=== PATIENT | female | born 1985 | race Caucasian/White ===

== ENCOUNTER 2016-09-04 01:10 | Inpatient (IN) | payer OTHER ==
[~2016-09-04] VITALS: Ht 200.7 cm; Wt 102.5 kg
[2016-09-04] MEDS ORDERED: Sodium Chloride LOK Flush 10 mL Syringe IVFLUSH PRN (21:15)
[2016-09-04] MEDS: Misoprostol 25 mCg/0.25 Tablet VAGINAL SCH (22:01)
[2016-09-04 22:06] LABS: Mean Corpuscular Hemoglobin 26.3 pg (27.0-35.0); Mean Corpuscular Volume 80.2 fL (81-100)
[2016-09-04] MEDS ORDERED: ESOM20CA28 PO (22:52)
[2016-09-04] MEDS ORDERED: PREN1TAB87 PO (22:52)
[2016-09-05] MEDS: Misoprostol 25 mCg/0.25 Tablet VAGINAL SCH ×2 (01:05→04:06)
[2016-09-05] MEDS: Lactated Ringer's 1,000 ML IV SCH (02:00)
[2016-09-05] MEDS ORDERED: Lactated Ringer's 500 ML IV ONE (12:52)
[2016-09-05] MEDS ORDERED: Lactated Ringer's 1,000 ML IV SCH ×2 (12:52→18:18)
[2016-09-05] MEDS ORDERED: Ondansetron 2 mg/mL 2 mL Inj IVPUSH PRN (12:55)
[2016-09-05] MEDS ORDERED: fentaNYL 2 mCg/mL-Bupiv 0.125% 100 ML EPIDURAL SCH (12:55)
[2016-09-05] MEDS ORDERED: EPHEDrine Sulfate 50 mg/mL Inj IVPUSH PRN (12:55)
[2016-09-05] MEDS ORDERED: Atropine 1 mg/10 mL (Code) Syringe IVPUSH PRN (12:55)
[2016-09-05] MEDS ORDERED: fentaNYL-PF 50 mCg/mL 2 mL Inj ONE (14:17)
[2016-09-05] MEDS ORDERED: fentaNYL-PF 50 mCg/mL 2 mL Inj IVPUSH ONE (14:25)
--- NOTE | 2016-09-05 16:50 | PCM.HPANE ---
Patient Data Surgeon Admitting Provider:Mac Cosme MD Attending Provider:Mac Cosme MD Primary Care Physician:Mac Cosme MD Other Provider:Kristyn Harding Anesthesia Reason for Visit Induction INDUCTION Ht/WT & BMI Body Mass Index Allergies Coded Allergies: No Known Allergies (Unverified , 09/04/16) MRSA MRSA: No Medications Hypertension Medication: No Home Meds Incl Beta Qiana: No Reported Medications Vit W-Ca,Fe,FA(<1 mg) ( Vitamins)1 Each Tablet1 Each PO 09/04/16 Esomeprazole Magnesium (Nexium)20 Mg Capsule.dr20 Mg PO DAILY Ref 0 09/04/16 History History of ENT Problems?: No Other HEENT Pertinent History: s/p tonsillectomy Hx of Heart Problems?: No Hx of Respiratory Problem?: No Hx Neurologic Problems?: No Hx of Problems?: No Female Hx: Positive for:: Currently Hx Musculoskeletal Problems?: No Stop/Bang KATIE Risk Assessment: Low Risk, <3 Yes Risk Assessment Category Category 1A: Patient has history of documented sleep apnea, and HAS NOT received any narcotic, sedative or anesthesia administration during this stay. Category 1B: Patient has history of documented sleep apnea, and HAS received any narcotic , sedative or anesthesia administration during this stay Category 2: Patient has SUSPECTED Obstructive Sleep Apnea, and HAS received any narcotic , sedative or anesthesia administration during this stay. Category 3: Patient has SUSPECTED Obstructive Sleep Apnea and HAS NOT received narcotic, sedative or anesthesia administration during this stay. Category 4: Outpatient in Procedural Areas with known sleep apnea or who screen positive for High Risk via the STOP/BANG questionnaire. Exam Exam General Appearance: Alert, Oriented X3, Cooperative, No Acute Distress HEENT/AIRWAY: MP 2 Lungs: Clear to Auscultation, Normal Air Movement Heart: Exam Unremarkable, Regular Rate/Rhythm, No Murmurs/Rubs/Gallops Meds/Labs/Diagnostics Admission Meds Current Medications Misoprostol 25 mcg 25 mcg Q3H VAGINAL Last administered on 09/05/16 04:06; Start 09/04/16 at 21:10 Lactated Ringer's (Lr) 1,000 ml @ 125 mls/hr Q8H IV Last administered on 02:00; Start 09/05/16 at 01:30 Dinoprostone (Cervidil Vaginal Insert) 10 mg ONCE ONCE VAGINAL Last administered on 09/05/16t 09:32; Start 09/05/16 at 09:10; Stop 09/05/16 at 09:11; Status DC Labs Test 09/04/16 21:00 09/04/16 21:55 09/04/16 22:01 Urine Random Creatinine 114mg/dL (16-392) Urine Random Total Protein 14mg/dL (0-15) Urine Protein/Creatinine Ratio 0.12 White Blood Count 11.3th/mm3 (3.8-10.1) Red Blood Count 4.64mil/mm3 (3.90-5.20) Hemoglobin 12.2g/dL (12.0-15.6) Hematocrit 37.2% (35.0-46.0) Mean Corpuscular Volume 80.2fL (81-100) Mean Corpuscular Hemoglobin 26.3pg (27.0-35.0) Mean Corpuscular Hemoglobin Concent 32.8% (32.0-37.0) Red Cell Distribution Width 14.3% (12.3-15.4) Platelet Count 304bil/L (150-400) Hematology Comments Blood Urea Nitrogen 8mg/dL (6-20) Creatinine 0.42mg/dL (0.57-1.00) Uric Acid 5.0mg/dL (2.6-7.2) Aspartate Amino Transf (AST/SGOT) 20U/L (0-50) Alanine Aminotransferase (ALT/SGPT) 9U/L (0-32) Hold Urine Received (Received) Plan Impression Patient chart reviewed, patient interviewed and anesthestic plan with risks, benefits, and alternatives discussed, and informed consent obtained. ASA Physical Status: ASA2 Mod Systemic Disease Anesthetic Plan: Epidural Bene/Risks/Altern/Consents: Yes HP Complete Prior to Induction: Yes Shaheed Felder MD Sep 05, 2016 12:55
[2016-09-05] MEDS ORDERED: Oxytocin 30 Units/500 mL LR Premix IV ONE (17:44)
[2016-09-05] MEDS ORDERED: Benzocaine (Dermoplast) 20% 60 Gm Spray TOPICAL PRN (18:20)
[2016-09-05] MEDS ORDERED: Methylergonovine 0.2 mg/mL Inj IM PRN (18:20)
[2016-09-05] MEDS ORDERED: LANOlin HPA 7 Gm Ointment TOPICAL PRN (18:20)
[2016-09-05] MEDS ORDERED: Oxytocin 10 Unit/mL Inj IM PRN (18:20)
[2016-09-05] MEDS ORDERED: Carboprost 250 mCg/mL Inj IM PRN (18:20)
[2016-09-05] MEDS ORDERED: Hemorrhage Kit, Post Partum XX ONE (18:20)
[2016-09-05] MEDS ORDERED: Influenza (Adult) Vaccine 0.5 mL Syringe IM ONE (18:20)
[2016-09-05] MEDS ORDERED: Measles-Mumps-Rubella Vaccine 0.5 mL Inj SUBQ ONE ×2 (18:20→18:35)
[2016-09-05] MEDS ORDERED: Witch Hazel-Glycerin Pads TOPICAL PRN (18:20)
[2016-09-05] MEDS ORDERED: HYDROcodone-APAP 5-325 mg Tablet PO PRN (18:20)
[2016-09-05] MEDS ORDERED: TdaP Vaccine 0.5 mL Inj IM ONE (18:20)
[2016-09-05] MEDS ORDERED: Oxytocin 30 Units/500 mL LR 30 UNITS in IV Premix 1 EACH IV PRN (18:20)
--- NOTE | 2016-09-05 18:50 | PROG NOTE ---
[address] [address] PROGRESS NOTE PATIENT: MARY JEFFRIES : 1985 MR#: [id number] ADMIT: 09/04/2016 JOB ID: [id number] DATE: 09/05/2016 TIME: 1803 hours. [facility] NOTE: This patient was admitted to [facility] last evening at 37-1/7 weeks of gestation with gestational hypertension for cervical ripening/labor induction. She ultimately received Cytotec 25 mcg x3 doses overnight and cervix remained however closed and thick and high and posterior this morning i.e. on September 05, 2016. Cervidil was subsequently provided and cervix then ultimately changed to 1-1/2 cm and then 3 cm of dilatation and epidural and provided for pain management as the patient a very difficult time with mild to moderate contractions as palpated during latent phase of labor. Note that spontaneous rupture of membranes occurred at around 0930 hours this morning, which notably helped improve the intensity of contractions thereafter. Note that the blood pressure has been good at times, although also with some blood pressure elevations mildly, although not at a point that we need to give any type of antihypertensive medication. Note that preeclampsia labs were normal and again gestational hypertension has been suspected, not preeclampsia. Following epidural activation, the patient received some good pain relief yet has felt a lot of pressure and head has been descending as we have found cervix to be dilated to 9 cm and then to 10 cm. The patient is now pushing and learning to do this effectively. heart tracing has been acceptable. Note recent scalp stim and subsequent good variability spontaneously. Note that the nurse just reported to me a temperature of 37.9, a brand new finding to have any type of fever. heart tracing has not been tachycardic, nor with any ominous pattern. There has been no purulent drainage and no uterine tenderness between contractions. It is anticipated that labor and delivery will occur soon and this is our goal, to report then to optical goods worker for any further workup or management in light of the fever. Note that rupture of membranes has only been for about 8-1/2 hours and the patient has negative GBS status. PLAN: Initiating pushing. Anticipating soon vaginal delivery.
--- NOTE | 2016-09-05 18:53 | HP ---
[address] [address] HISTORY AND PHYSICAL PATIENT: MARY JEFFRIES : 1985 MR#: [id number] ADMIT: 09/04/2016 JOB ID: [id number] [facility] [place] NOTE: DATE: 09/04/2016 The patient is a 30-year-old, G2, P0, AB1 woman followed prenatally at [facility] per Dr. Cosme, see record for details. Note third trimester onset of mild hypertension, initially with 90 diastolics yet then increasing to 100 diastolic, even in the 95-100 range intermittently while doing bed rest at home. There has been no specific evidence for preeclampsia, yet concern is overall with degree of hypertension that this is related to gestational hypertension. We were able to gain a few weeks up to 37 weeks, but then felt that labor induction and delivery would be appropriate. She was thus admitted on September 04, 2016 for cervical ripening preceding labor induction. In summary, then, the patient was admitted to [facility] on September 04, 2016 at 37 1/7 weeks gestation for cervical ripening/labor induction in the setting of significant gestational hypertension. PHYSICAL EXAMINATION: On admission, height 67 inches, weight 224 pounds at last check in the office. Blood pressure variable, significantly elevated on admission, then coming down; see nurse readings. Neck: No thyromegaly lungs are auscultation and percussion. Heart: Regular in rate and rhythm. Abdomen: Fundal height 37 cm at last check. Positive heartbeat. Vertex presentation. Pelvic examination: Cervix long, thick and closed and posterior. IMPRESSION: 1. A 37 1/7 weeks . 2. Gestational hypertension, no antihypertensive medication, no evidence for preeclampsia. 3. Increased weight gain in , 53 pounds. 4. Increased weight. 5. Rh-negative status, having received RhoGAM injection in , also MICRhoGAM injection last spring following a miscarriage. The MICRhoGAM was felt to have accounted for positive antibody screen noted at 10 weeks along during current , and then antibody screen was appropriately subsequently negative late in the 2nd trimester on recheck. 6. Negative group B strep test. 7. Rubella immune. 8. Shingles occurrence earlier in , note history of known chickenpox. 9. Prior tonsillectomy. 10. No known drug allergies. 11. Family history of twins (uncles), and breast cancer (paternal grandmother). PLAN: This patient was admitted to [facility] in the evening of September 04, 2016 for cervical ripening in the setting of gestational hypertension at 37 1/7 weeks gestation.
[2016-09-06 06:30] LABS: Mean Corpuscular Hemoglobin 26.2 pg (27.0-35.0); Mean Corpuscular Volume 79.8 fL (81-100)
--- NOTE | 2016-09-06 06:51 | PCM.ANEP2 ---
Post Anesthesia Evaluation ASA/CMS Post Anesthesia VS in Patient's Normal Range?: Yes Resp Stable; Airway Patent?: Yes CV Function & Hydration Stable: Yes Mental Status Recovered?: Yes Pain control Satisfactory?: Yes N/V Control Satisfactory?: Yes Shaheed Felder MD Sep 06, 2016 06:51
[2016-09-06] MEDS ORDERED: Measles-Mumps-Rubella Vaccine 0.5 mL Inj SUBQ ONE (08:30)
[2016-09-06] MEDS: Misoprostol 25 mCg/0.25 Tablet VAGINAL SCH ×2 (08:40→14:27)
[2016-09-06] MEDS: Lactated Ringer's 1,000 ML IV SCH (08:41)
--- NOTE | 2016-09-06 09:07 | OP ---
[address] [address] OPERATIVE REPORT PATIENT: MARY JEFFRIES : 1985 MR#: [id number] ADMIT: 09/04/2016 JOB ID: [id number] DATE OF SURGERY: 09/05/[address] [facility] NOTE: SURGEON: Mac Cosme MD. PREOPERATIVE DIAGNOSIS(ES): POSTOPERATIVE DIAGNOSIS(ES): TIME: 2000 hours. DELIVERY NOTE: Admitted to [facility] on September 04, 2016, for cervical ripening/labor induction in the setting of approximately 37-week with gestational hypertension. Cervix was unfavorable, and she received Cytotec overnight x3 doses and then Cervidil this morning and cervix continued to be closed. However, spontaneous rupture of membranes then occurred and labor progressed, and epidural was provided for pain management. Blood pressure was acceptable, occasionally mildly elevated, no antihypertensive medication required. Ultimately, the patient reached complete cervical dilatation and began to push. Note that there was some fever noted around the time of reaching complete cervical dilatation, at 37.9 degrees, then down to 37.7 degrees and back up to 38.3 degrees at high point. There was no worrisome tachycardia, no purulent drainage, no foul-smelling drainage, no uterine tenderness between contractions, no distress, etc. There were, thus, no specific signs or symptoms of chorioamnionitis, and although considered a possibility, it was thought much more likely that epidural-related fever was present. Note that antibiotics were thus not administered, rather simply encouragement to deliver, (as now in the second stage of labor), and then to reassess maternal and conditions. Note that there was also no historical information increasing the risk of chorioamnionitis, in general, for example, without prolonged rupture of membranes, negative GBS status, etc. Note that heart tracing continued to demonstrate reasonable heart rate variability and always appropriate heart rate response to scalp stimulation throughout the second stage of labor. Oxygen was provided at times when there were some variable decelerations, yet certainly no ominous pattern. Ultimately, head crowned followed by delivery of the head, which was molded and with caput. Nuchal cord was noted and reduced over the head followed by delivery of the shoulders, body and extremities. It seemed like a relatively snug fit for a small baby (6 pounds 5 ounces), to keep in mind with future deliveries. Baby was active and crying by 30-60 seconds following delivery. Baby was stimulated and dried by nurse and physician. After 1 minute of delay, umbilical cord was clamped and cut, and cord blood was obtained for routine studies. Placenta with membranes were then spontaneously expelled, intact. Uterus contracted well with massage plus intravenous Pitocin infusion. Total blood loss was not excessive. Betadine solution was used to cleanse the vulvovaginal region. Only laceration was that of second-degree midline perineal laceration, primarily located in the fourchette region. This was bleeding, and easily repaired with 3-0 chromic suture in deep and more superficial layers. There was no involvement of rectum. There was no hematoma formation. After repair, procedure was complete. Instrument, needle and sponge counts were all found to be correct. It certainly is anticipated that mother and baby will do very well during the timeframe. Baby will be closely followed at 37 and plus weeks along in , and with late labor fever, although chorioamnionitis not specifically suspected. Mother will be followed in light of late labor fever, as well as in regard to the gestational hypertension, although doubt that antibiotics or antihypertensive medication will be needed, respectively. Note that we will need to keep in mind the snug fit for the 6 pound 5 ounce baby, to hope to not have a much larger baby in the future. MTDD
--- NOTE | 2016-09-06 14:24 | NUR ---
Shift report: Mom is up and ambulatory in room. She denies pain, reporting, "I am taking my pain pills so I don't have pain" She did report an incident of pain in her rt shoulder. Mom lungs are CTA bilat. Abd soft with BT"s q4. Mom reports passing flatus yesterday but not today. Denies nausea. Dressing removed by . Incision is approximate with steristrips intact. Mom has some edema in her lower extremities. Mom voiding, reports she is able to empty her bladder. FF1/u, light lochia flow. Mom up to shower. Mom is using breast pum to facilitate milk production and has been working with . Mom will br. feed babe, than suppliment with formula/then pump. Addendum: 09/06/16 at 1435 by JAVIER BASHIR RN The above notation was written on the wrong chart.
--- NOTE | 2016-09-06 14:37 | NUR ---
Please note the previous note has been written on the wrong patient.
--- NOTE | 2016-09-06 18:04 | PCM.DIOB ---
Obstetrical Disch Instruction Dates of Hospitalization Date of Hospital Admission Sep 04, 2016 at 19:01 Providers Admitting Physician: Mac Cosme MD Primary Care Physician: Mac Cosme MD Attending Physician: Mac Cosme MD Discharge Diagnosis Problems: (1) Gestational hypertension w/o significant proteinuria in 3rd trimester Status: Acute ICD Code: O13.3 Diet Discharge Diet: No restrictions Activity Discharge Activity-General: Pelvic Rest for 6 weeks Dressing and Incisional Care Hygiene: May shower, Perineal care, Sitz bath, Dermoplast spray, Witch Sona pads, Ice Follow Up Plan Follow-up appointment: Weeks (Follow up in 6 weeks for check up with Dr. Cosme.) Call your provider for: Fever or Chills, Shortness of breath, Heavy vaginal bleeding, Red painful breasts Mac Cosme MD Sep 06, 2016 18:04
[2016-09-06] MEDS ORDERED: IBUP-1827 PO (18:12)
[2016-09-06] MEDS ORDERED: DOCU-41 PO (18:12)
[2016-09-06 20:18] VITALS: BP 137/74; PULSE 92; RESP 16
--- NOTE | 2016-09-06 22:29 | DIS ---
[address] [address] DISCHARGE SUMMARY PATIENT: MARY JEFFRIES : 1985 MR#: [id number] ADMIT: 09/04/2016 JOB ID: [id number] DIS: 09/06/2016 DATE OF DISCHARGE: 09/06/2016 DISCHARGE DIAGNOSES: 1. A 37 plus week , delivered. 2. Gestational hypertension. PROCEDURE PERFORMED DURING HOSPITALIZATION: 1. Cervical ripening/labor induction. 2. Vaginal delivery. 3. Repair of midline perineal laceration. 4. General anesthesia. HOSPITAL COURSE: Patient was admitted to [facility] in the evening of September 04, 2016 for cervical ripening/labor induction in the setting of significant gestational hypertension with diastolic blood pressures not infrequently reaching 95-100. There was no definitive evidence for preeclampsia. Ultimately, the patient went on to deliver vaginally and she also did well during the timeframe. Note that no antihypertensive medication was required during labor or after, magnesium sulfate therapy was not needed, and blood pressures gradually reduced over time during the timeframe. The patient had reasonable vitals, she remained afebrile, she had no worrisome bleeding, she was able to void and ambulate, pain management was reasonable, and baby well. hemoglobin was good. Note that the baby and mom worked on feeding and this was gradually improving. It was felt by the rn research the baby should be hospitalized for another night to continue with feeding efforts as delivered at 37 weeks along, yet mom could certainly be discharged to boarder status and this was accomplished. DISCHARGE PROGRAM: Patient will call p.r.n., yet otherwise she will follow up in six weeks for checkup with Dr. Cosme. She will observe pelvic rest for six weeks. DISCHARGE MEDICATIONS: Include ibuprofen and Colace, prescriptions written. She will also use vitamin daily, having supply at home.
--- NOTE | 2016-09-09 14:01 | PATH ---
SURGICAL PATHOLOGY Attending Physician:Mac Cosme M.D CASE STATUS: Signed Out PATIENT NAME: MARY JEFFRIES PID: [id number] : 1985 DATE COLLECTED:09/05/2016 00:00 SPECIMEN: Placenta CLINICAL HISTORY: 1. FEVER IN LATE TERM 2. GESTATIONAL HYPERTENSION 3. 37 WEEK DELIVERY 4. VELAMENTOUS INSERTION OF UMBILICAL CORD PLACENTA FINAL DIAGNOSIS: 1.PLACENTA (392 GRAMS): MATURE PLACENTA WITH VELAMENTOUS INSERTION OF THE UMBILICAL CORD. NEGATIVE FOR CHORIOAMNIONITIS AND FUNISITIS. ICD10 CODE O43.123 O13.9 GROSS DESCRIPTION: The specimen is received in formalin, labeled with the patient's name and consists of an intact placenta and includes placental disc (392 g, 16.5 x 13.7 x 2.6 cm), umbilical cord (length-7.0 cm, diameter-1.5 x 0.4 cm) and membranes. The membranes are ruptured 8.5 cm from the free edge of the placenta and are translucent. The umbilical cord has a velamentous insertion 7.5 cm from the edge of the placenta and contains 3 vessels. The surface is smooth and shiny with no evidence of meconium. The maternal surface is dark maroon with normal cotyledon formation. The placental disc is spongy with no hematomas, infarcts, nodules, masses, or lesions. Section code: (A) edge of placenta with membranes, umbilical cord; (B, C) placenta, 2 full thickness sections. 09/07/16 JM MICRO DESCRIPTION: See diagnosis. ICD-9 CODES: CPT CODES: 1: 61913 Electronically Signed Out Dipesh Arias MD [facility] [address], [place] [address] Technical component performed at [facility], [facility] [address], [address]
== END 2016-09-06 20:25 | disposition home or self-care (01) | DRG 775 ==
LOC: FBC 19:01
PROVIDERS: ADMIT Obstetrics & Gynecology; ATTEND Obstetrics & Gynecology
PROC: 0KQM0ZZ Repair Perineum Muscle, Open Approach (ICD-10-PCS; principal; 2016-09-06)
PROC: 10E0XZZ Delivery of Products of Conception, External Approach (ICD-10-PCS; 2016-09-06)
DX: O13.4 Gestational [pregnancy-induced] hypertension without significant proteinuria, complicating childbirth (principal); O70.1 Second degree perineal laceration during delivery; O69.81X0 Labor and delivery complicated by cord around neck, without compression, not applicable or unspecified; Z3A.37 37 weeks gestation of pregnancy; Z37.0 Single live birth